=== PATIENT | male | born 1950 | race American Indian/Alaskan Native ===

== ENCOUNTER 2019-11-01 20:40 | Emergency (ER) | payer OTHER ==
[2019-11-01 20:51] VITALS: BP 132/86; PULSE 71
--- NOTE | 2019-11-01 21:05 | EDM.PDOC ---
ED HPI GENERAL MEDICAL PROBLEM - General Chief Complaint: Chest Pain Stated Complaint: [facility] Time Seen by Provider: 11/01/19 20:57 Source of Information: Reports: Patient History Limitations: Reports: No Limitations - History of Present Illness INITIAL COMMENTS - FREE TEXT/NARRATIVE: Patient's unfortunate 68-year-old male presents emergency department complaining of left-sided chest pressure and shortness of breath. Patient reports she was in his normal state of health approximately 2 prior to arrival when he started having chest pressure on the left side of his chest and shortness of breath. It's that shortness of breath does not alleviate pressure did not alleviate called EMS brought him emergency department for evaluation in route patient was given nitroglycerin which improved his symptoms dropped his pain from a 3 or a 4 to a 2. Patient also reports that he is lightheaded his blood pressure now is 107/40 we will not be giving patient any actual glycerin secondary to this. Patient does have a history of cardiac disease and has had stents in the past his last stent was placed in 2005 in [place]. Patient denies any nausea no vomiting no diaphoresis describes the pain in his chest as a pressure nothing makes the pain better nothing makes the pain worse patient reports this pain is similar to previous episodes where he had an [place] Chest Pain Score (Numeric/FACES): 4 - Related Data Allergies Allergy/AdvReac Type Severity Reaction Status Date / Time morphine Allergy Anaphylactic Verified 11/01/19 20:48 Shock Home Meds: Home Meds Acetaminophen/oxyCODONE [Percocet 325-5 MG] 1 tab PO Q6H PRN #20 tablet [Rx] Acetaminophen/oxyCODONE [Percocet 325-5 MG] 1 tab PO Q6H PRN #5 tablet 06/18/15 [Rx] Aspirin [Enrique Chewable Aspirin] 81 mg PO DAILY 06/18/15 [History] Cyclobenzaprine [Flexeril] 10 mg PO BID PRN #20 tablet 06/18/15 [Rx] carvediloL [Carvedilol] 25 mg PO BID 06/18/15 [History] Past Medical History HEENT History: Reports: Impaired Vision Other HEENT History: Wears glasses Cardiovascular History: Reports: Afib, High Cholesterol, Hypertension, AL, Pacemaker, Prior Cardiac Arrest, Stents Other Cardiovascular History: Pericarditis Genitourinary History: Reports: BPH Musculoskeletal History: Reports: Fracture Endocrine/Metabolic History: Reports: Diabetes, Type II - Past Surgical History HEENT Surgical History: Reports: Tonsillectomy Other Musculoskeletal Surgeries/Procedures:: back surgeries Social & Family History - Tobacco Use Smoking Status *Q: Current Every Day Smoker Years of Tobacco use: 1 Packs/Tins Daily: 0.2 - Recreational Drug Use Recreational Drug Use: No ED ROS GENERAL - Review of Systems Review Of Systems: See Below Constitutional: Denies: Fever, Chills Respiratory: Reports: Shortness of Breath. Denies: Cough, Sputum Cardiovascular: Reports: Chest Pain GI/Abdominal: Denies: Abdominal Pain, Nausea, Vomiting ED EXAM, GENERAL - Physical Exam Exam: See Below Exam Limited By: No Limitations General Appearance: Alert, WD/WN, Mild Distress Throat/Mouth: Normal Inspection, Normal Lips, Normal Teeth, Normal Gums, Normal Oropharynx, Normal Voice, No Airway Compromise Head: Atraumatic, Normocephalic Neck: Normal Inspection, Supple, Non-Tender, Full Range of Motion Respiratory/Chest: No Respiratory Distress, Lungs Clear, Normal Breath Sounds, No Accessory Muscle Use, Chest Non-Tender Cardiovascular: Normal Peripheral Pulses, Regular Rate, Rhythm, No Edema, No Gallop, No JVD, No Murmur, No Rub GI/Abdominal: Normal Bowel Sounds, Soft, Non-Tender, No Organomegaly, No Distention, No Abnormal Bruit, No Mass Back Exam: Normal Inspection Extremities: Normal Inspection, Normal Range of Motion, Non-Tender, Normal Capillary Refill, No Pedal Edema Neurological: Alert Skin Exam: Warm, Dry, No Rash Course - Vital Signs Last Recorded V/S: Last Vital Signs Temp 97.7 F 11/01/19 20:48 Pulse 71 11/01/19 20:48 Resp 16 11/01/19 20:48 BP 132/86 11/01/19 20:48 Pulse Ox 99 11/01/19 20:48 - Orders/Labs/Meds Orders: Active Orders 24 hr Category Date Time Status EKG Documentation Completion [RC] ASDIRECTED Care 11/01/19 21:03 Active Chest 1V Frontal [CR] Stat Exams 11/01/19 21:02 Taken PRO B-TYPE NATRIUR PEPT,BNPPRO [CHEM] Stat Lab 11/01/19 21:33 Ordered UA RFX АНДРЕЙ AND CULT IF INDIC [URIN] Stat Lab 11/01/19 21:02 Ordered EKG 12 Lead [EK] Stat Ther 11/01/19 21:02 Ordered Labs: Laboratory Tests 11/01/19 11/01/19 Range/Units 20:49 20:49 WBC 10.18 H (4.23-9.07) K/mm3 RBC 4.69 (4.63-6.08) M/mm3 Hgb 14.7 (13.7-17.5) gm/dl Hct 43.5 (40.1-51.0) % MCV 92.8 H (79.0-92.2) fl MCH 31.3 (25.7-32.2) pg MCHC 33.8 (32.2-35.5) g/dl RDW Std Deviation 49.5 H (35.1-43.9) fL Plt Count 137 L (163-337) K/mm3 MPV 10.7 (9.4-12.3) fl Neut % (Auto) 73.7 H (34.0-67.9) % Lymph % (Auto) 14.5 L (21.8-53.1) % [place] % (Auto) 9.7 (5.3-12.2) % Eos % (Auto) 1.3 (0.8-7.0) Baso % (Auto) 0.3 (0.1-1.2) % Neut # (Auto) 7.50 H (1.78-5.38) K/mm3 Lymph # (Auto) 1.48 (1.32-3.57) K/mm3 [place] # (Auto) 0.99 H (0.30-0.82) K/mm3 Eos # (Auto) 0.13 (0.04-0.54) K/mm3 Baso # (Auto) 0.03 (0.01-0.08) K/mm3 Manual Slide Review Normal smear Sodium 135 L (136-145) mEq/L Potassium 4.8 (3.5-5.1) mEq/L Chloride 102 (98-107) mEq/L Carbon Dioxide 23 (21-32) mEq/L Anion Gap 14.8 (5-15) BUN 14 (7-18) mg/dL Creatinine 1.2 (0.7-1.3) mg/dL Est Cr Clr Drug Dosing 62.65 mL/min Estimated GFR (MDRD) > 60 (>60) mL/min BUN/Creatinine Ratio 11.7 L (14-18) Glucose 228 H (80-115) mg/dL Calcium 8.8 (8.5-10.1) mg/dL Total Bilirubin 1.0 (0.2-1.0) mg/dL AST 64 H (15-37) U/L ALT 36 (16-63) U/L Alkaline Phosphatase 97 (46-116) U/L Troponin I 4.811 H* (0.00-0.056) ng/mL Total Protein 7.5 (6.4-8.2) g/dl Albumin 3.7 (3.4-5.0) g/dl Globulin 3.8 gm/dL Albumin/Globulin Ratio 1.0 (1-2) Meds: Medications Discontinued Medications Generic Name Dose Route Start Last Admin Trade Name Freq PRN Reason Stop Dose Admin Enoxaparin Sodium 90 mg 11/01/19 21:32 Lovenox SUBCUT 11/01/19 21:33 ONETIME ONE Enoxaparin Sodium 90 mg 11/01/19 21:36 11/01/19 21:42 Lovenox SUBCUT 11/01/19 21:37 90 mg ONETIME ONE Administration - Re-Assessments/Exams Free Text/Narrative Re-Assessment/Exam: 11/01/19 21:29 chest X-ray interpreted by me NAD Free Text/Narrative Re-Assessment/Exam: 11/01/19 21:36 Troponin is elevated at 4.811 11/01/19 21:57 Patient was given by mouth aspirin and Lovenox was started Free Text/Narrative Re-Assessment/Exam: 11/01/19 21:56 Discussed case with at [place] in [facility] ER patient in transfer Departure - Departure Time of Disposition: 21:56 Disposition: DC/Tfer to Hospice-Med Fac [facility] Reason for Transfer *Q: Other (N STEMI) Condition: Good Clinical Impression: Non-STEMI (non-ST elevated myocardial infarction) Referrals: PCP,Not In Area [Primary Care Provider] - Forms: ED Department Discharge Sepsis Event Note - Evaluation Sepsis Screening Result: No Definite Risk - Focused Exam Vital Signs: Vital Signs Temp Pulse Resp BP Pulse Ox 11/01/19 20:48 97.7 F 71 16 132/86 99 Date Exam was Performed: 11/01/19 Time Exam was Performed: 21:56 - My Orders Last 24 Hours: My Active Orders 11/01/19 21:02 Chest 1V Frontal [CR] Stat UA RFX АНДРЕЙ AND CULT IF INDIC [URIN] Stat EKG 12 Lead [EK] Stat 11/01/19 21:03 EKG Documentation Completion [RC] ASDIRECTED 11/01/19 21:33 PRO B-TYPE NATRIUR PEPT,BNPPRO [CHEM] Stat - Assessment/Plan Last 24 Hours: My Active Orders 11/01/19 21:02 Chest 1V Frontal [CR] Stat UA RFX АНДРЕЙ AND CULT IF INDIC [URIN] Stat EKG 12 Lead [EK] Stat 11/01/19 21:03 EKG Documentation Completion [RC] ASDIRECTED 11/01/19 21:33 PRO B-TYPE NATRIUR PEPT,BNPPRO [CHEM] Stat
[2019-11-01] MEDS ORDERED: Enoxaparin 80 MG/0.8 ML Syringe SUBCUT ONE (21:32)
[2019-11-01] MEDS ORDERED: Enoxaparin 100 MG/1 ML Syringe SUBCUT ONE (21:36)
[2019-11-01] MEDS ORDERED: Aspirin 81 MG Tab.Chew PO ONE (21:57)
--- NOTE | 2019-11-02 07:49 | CR ---
Chest: Portable view of the chest was obtained. Comparison: No prior chest imaging. Heart size at the upper limits of normal. Upper mediastinum is normal. Lungs are clear with no acute parenchymal change. Bony structures are grossly intact. Impression: 1. Nothing acute seen on portable chest x-ray. Diagnostic code #2 This report was dictated in [place] Standard Time
== END 2019-11-02 01:00 ==
LOC: JD.ED 20:40
DX: I21.4 Non-ST elevation (NSTEMI) myocardial infarction (principal); E11.9 Type 2 diabetes mellitus without complications; F17.210 Nicotine dependence, cigarettes, uncomplicated; I10 Essential (primary) hypertension; Z88.5 Allergy status to narcotic agent; Z79.899 Other long term (current) drug therapy; Z79.82 Long term (current) use of aspirin; Z98.890 Other specified postprocedural states
CPT/HCPCS: 36415; 71045; 80053; 83880; 84484; 85025; 93005; 96372; 99285; A9270; J1650; 93010; 99284